=== PATIENT | female | born 1960 | race Caucasian/White ===

== ENCOUNTER 2020-02-08 14:06 | Emergency (ER) | payer BC, SELFPAY ==
[2020-02-08 14:30] VITALS: BP 133/64; PULSE 54; RESP 20; TEMP 36.7; O2SAT 98
[2020-02-08 15:03] LABS: Appearance Urine Clear (Clear); Bilirubin Urine Negative (Negative); Color Urine Orange (Yellow); Glucose Urine UA Trace (Negative); Ketones Urine Negative (Negative); Leukocyte Esterase Ur Trace LEU/UL (Negative); Nitrate Urine Positive (Negative); Protein Urine Negative (Negative); Specific Grav Ur <= 1.005 (1.010-1.020); pH Urine 6.5 (5.0-8.0)
--- NOTE | 2020-02-08 15:03 | ED.FEMALEGU ---
HPI - Female Genitourinary General Chief complaint: Urogenital-Female Stated complaint: Back Pain Source: patient Mode of arrival: ambulatory Limitations: no limitations History of Present Illness HPI Narrative: this is a 59-year-old female from out of town driving from [place] to [place] was treated for urinary tract infection approximately 2 weeks ago / completed a course of antibiotics, was on Bactrim and her symptoms may have improved slightly but continues to have symptoms of suprapubic pressure with some flank pain with no fever chills no nausea vomiting has dysuria with no hematuria. The patient has finished a course of antibiotics approximately 2 weeks ago and has been taken azo along with the antibiotics. MD elicited complaint: dysuria Onset (ago): day(s) Location of symptoms: suprapubic and flank Severity: mild Female Urogenital Radiation: Non-Radiating Severity scale (1-10): 3 Quality of pain: dull and aching Consistency: constant Vaginal discharge: none Vaginal bleeding: none Urinary symptoms: Dysuria Associated symptoms: denies other symptoms Related Data Allergies Allergy/AdvReac Type Severity Reaction Status Date / Time Penicillins Allergy Unknown rash Verified 02/08/20 15:17 Review of Systems Review of Systems: All systems reviewed & are unremarkable except as noted in HPI and below PMFSH Past Medical History Medical History Depression Social History Social History Gender identity (if verbalized by the patient): Female Exam Const: General: no acute distress Orientation/consciousness: patient oriented x3 HENMT: Head: normal to inspection Eyes: Conjunctivae: conjunctivae normal Pupils: Equal, round and reactive pupils present EOM: EOMs intact bilaterally Neck: Neck: normal visual inspection, no lymphadenopathy and no meningeal signs Chest: Chest palpation & inspection: normal inspection of the chest Resp: Effort & Inspection: normal respiratory effort Auscultation: clear to auscultation bilaterally Cardio: Rate: regular rate Rhythm: regular rhythm GI: GI Palp: Yes Soft to palpation Other: suprapubic tenderness with palpation Back/Spine/Pelvis: Back: CVA tenderness Skin: General skin exam: normal color Rashes: no rashes Neuro: General: patient oriented x3 and moves all extremities Extrem: General: normal to inspection Psych: Mental Status: mental status grossly normal Course Course Emergency Course: reassessment of patient, has improved with IM Toradol and a dose of ceftriaxone prior to her being discharged. Review the UA with patient and advised her to take medicine that we prescribed, and follow-up with primary care physician to evaluate why she is having these frequent urinary tract infections. Vital Signs Vital signs: Vital Signs Temperature 36.7 C 02/08/20 14:30 Pulse Rate 54 L 02/08/20 14:30 Respiratory Rate 02/08/20 14:30 Blood Pressure 133/64 02/08/20 14:30 Pulse Oximetry 98 02/08/20 14:30 Temperature 36.7 C 02/08/20 14:30 Pulse Rate 54 L 02/08/20 14:30 Respiratory Rate 02/08/20 14:30 Blood Pressure 133/64 02/08/20 14:30 Pulse Oximetry 98 02/08/20 14:30 MDM - Female Genitourinary Lab Data Labs: Lab Results 02/08/20 Range/Units 14:55 Urine Color Pending Urine Appearance Pending Urine pH Pending Ur Specific [place] Pending Urine Protein Pending Urine Glucose (UA) Pending Urine Ketones Pending Ur Blood (Man) Pending Urine Nitrate Pending Urine Bilirubin Pending Urine Urobilinogen Pending Leukocyte Esterase Rfl Pending Critical Care Time Critical Care Time Critical Care Time: No Discharge Plan Discharge Clinical Impression: UTI (urinary tract infection) Qualifiers: Urinary tract infection type: acute cystitis Hematuria presence: without hematuria Q
[2020-02-08] MEDS: cefTRIAXone 1 GM VIAL IM (15:06)
[2020-02-08] MEDS: KETOROLAC (*BKC) 60 MG/2 ML VIAL IM (15:06)
[2020-02-08 15:09] LABS: Add Urine Microscopic? YES; Bacteria Urine 2+ /hpf; Blood Urine Trace-Intact (Negative); RBC Urine 0-2 /hpf (0-2); Squamous Epithelial Cell Urine Few /hpf (Few); WBC Urine 0-3 /hpf (0-3)
[2020-02-08] MEDS: LIDOCAINE HCL 1% LOCAL INJ 20 ML VIAL (15:09)
[2020-02-08 15:30] VITALS: PULSE 56; RESP 20; O2SAT 98
== END 2020-02-08 15:45 | disposition home or self-care (01) ==
PROVIDERS: Emergency Provider Emergency Medicine
DX: N30.00 Acute cystitis without hematuria (principal)
CPT/HCPCS: 81001; 87086; 87088; 96372; 99283; 99284; J0696; J1885